=== PATIENT | female | born 1955 | race Caucasian/White ===

== ENCOUNTER 2018-07-07 15:23 | Inpatient (IN) | payer OTHER, BC ==
[~2018-07-07] VITALS: Ht 167.6 cm; Wt 127.3 kg
[2018-07-07] MEDS ORDERED: SODIUM CHLORIDE 0.9% 1000ML 1,000 ML IV STA (15:32)
[2018-07-07] MEDS ORDERED: OPTIRAY 320 IV PRN (15:45)
[2018-07-07 16:38] LABS: ISTAT CREATININE 0.5 mg/dl (0.6-1.3); ISTAT IONIZED CALCIUM 1.12 mmol/l (1.12-1.32)
[2018-07-07] MEDS ORDERED: VALS-10 PO (17:04)
[2018-07-07] MEDS ORDERED: GLIP1TAB85 PO (17:04)
[2018-07-07] MEDS ORDERED: VTMB12 PO (17:04)
[2018-07-07] MEDS ORDERED: OMEG5CAP PO (17:04)
[2018-07-07] MEDS ORDERED: METF-384 PO (17:04)
[2018-07-07] MEDS ORDERED: METO25TA4 PO (17:04)
[2018-07-07] MEDS ORDERED: MAGN250T9 PO (17:04)
[2018-07-07] MEDS ORDERED: ASPI81TA28 PO (17:04)
[2018-07-07] MEDS ORDERED: PRAV20TA PO (17:04)
[2018-07-07] MEDS ORDERED: NF34 TOP (17:04)
[2018-07-07] MEDS ORDERED: VITA1TAB4 PO (17:04)
[2018-07-07] MEDS ORDERED: CHOL20005 PO (17:04)
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
[2018-07-07] MEDS ORDERED: ONDANSETRON INJ 2 MG/ML 2 ML VIAL IV PRN (19:00)
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
[2018-07-07 19:40] VITALS: BP 166/87; PULSE 94; TEMP 36.9; O2SAT 95; Ht 167.6 cm; Wt 127.3 kg
[2018-07-07] MEDS: CLOBETASOL PROPIONATE 0.05% OINT 15 GM TUBE EXT SCH (20:44)
[2018-07-07] MEDS: PRAVASTATIN SOD 20 MG TAB PO SCH (20:46)
[2018-07-07] MEDS: INSULIN ASPART 100 UNITS/ML 3 ML PEN SC SCH (20:48)
[2018-07-07] MEDS ORDERED: IV FLUIDS COMPLETED PRN (21:15)
[2018-07-07] MEDS: HYDROmorphone INJ 0.5 MG/0.5 ML SYR IV PRN (21:19)
[2018-07-07 23:15] VITALS: BP 132/73; PULSE 82; TEMP 37.1; O2SAT 91
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
[2018-07-08] MEDS: HYDROmorphone INJ 0.5 MG/0.5 ML SYR IV PRN ×3 (01:29→17:50)
[2018-07-08 03:09] VITALS: BP 138/77; PULSE 76; TEMP 36.8; O2SAT 91
[2018-07-08 07:37] VITALS: BP 167/83; PULSE 76; TEMP 36.9; O2SAT 94
[2018-07-08 07:53] LABS: HEMATOCRIT 37.6 % (37-47); HEMOGLOBIN 12.6 g/dL (12.0-16.0); MEAN CELL VOLUME 89.1 fL (80-100); MEAN CORPUSCULAR HEMOGLOBIN 29.9 pg (25-34); MEAN CORPUSCULAR HGB CONC 33.5 g/dl (32-36); MEAN PLATELET VOLUME 11.2 fL (7.4-10.4); PLATELET COUNT 205 K/uL (130-400); RED CELL DISTRIBUTION WIDTH CV 13.4 % (11.5-14.5); WHITE BLOOD COUNT 8.67 K/uL (4.8-10.8)
[2018-07-08 08:03] LABS: CALCIUM 8.8 mg/dl (8.5-10.1); CREATININE 0.64 mg/dl (0.60-1.20); POTASSIUM 4.1 mmol/L (3.5-5.1)
[2018-07-08 08:17] LABS: BASO % 0.5 %; BASO ABS # 0.04 K/uL (0-0.2); EOS % 0.2 %; EOS ABS # 0.02 K/uL (0-0.5); IG# 0.03 K/uL (0.00-0.02); LYMPH ABS # 2.08 K/uL (1.2-3.4); MONO % 11.8 %; MONO ABS # 1.02 K/uL (0.11-0.59); NEUT % 63.2 %; NEUT ABS # 5.48 K/uL (1.4-6.5)
[2018-07-08] MEDS: VALSARTAN 80 MG TAB PO SCH (08:19)
[2018-07-08] MEDS: METOPROLOL SUCC 25MG EXT REL TAB PO SCH (08:20)
[2018-07-08] MEDS: HYDROCHLOROTHIAZIDE 25 MG TAB PO SCH (08:20)
[2018-07-08] MEDS: CYANOCOBALAMIN 500 MCG TAB (VIT B-12) PO SCH (08:20)
[2018-07-08] MEDS: CHOLECALCIFEROL 1000 INTER.UNIT TAB PO SCH (08:21)
[2018-07-08] MEDS: CLOBETASOL PROPIONATE 0.05% OINT 15 GM TUBE EXT SCH ×2 (08:21→20:34)
[2018-07-08] MEDS: OMEGA-3 (PURIFIED FISH OIL) 1 GM CAP PO SCH (08:21)
[2018-07-08] MEDS: INSULIN ASPART 100 UNITS/ML 3 ML PEN SC SCH ×4 (08:25→20:35)
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
[2018-07-08] MEDS ORDERED: NON-FORMULARY MEDICATION (Magnesium 250 MG) PO SCH (09:00)
[2018-07-08] MEDS ORDERED: VITAMIN E 400 UNIT PO SCH (09:00)
[2018-07-08 11:27] VITALS: BP 155/78; PULSE 77; TEMP 36.8; O2SAT 93
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
[2018-07-08 15:39] VITALS: BP 125/68; PULSE 80; TEMP 37.1; O2SAT 94
[2018-07-08 19:48] VITALS: BP 153/80; PULSE 70; TEMP 36.8; O2SAT 91
[2018-07-08] MEDS: PRAVASTATIN SOD 20 MG TAB PO SCH (20:35)
[2018-07-08] MEDS: OXYCODONE/ACETAMINOPHEN 5-325 TAB PO PRN (20:37)
[2018-07-08 22:58] VITALS: BP 130/68; PULSE 69; TEMP 36.6; O2SAT 92
[2018-07-09 04:02] VITALS: BP 134/83; PULSE 72; TEMP 36.6; O2SAT 92
[2018-07-09 06:44] VITALS: BP 141/81; PULSE 69; TEMP 37.1; O2SAT 93
[2018-07-09] MEDS: CLOBETASOL PROPIONATE 0.05% OINT 15 GM TUBE EXT SCH ×2 (08:08→21:00)
[2018-07-09] MEDS: OMEGA-3 (PURIFIED FISH OIL) 1 GM CAP PO SCH (08:13)
[2018-07-09] MEDS: VALSARTAN 80 MG TAB PO SCH (08:14)
[2018-07-09] MEDS: METOPROLOL SUCC 25MG EXT REL TAB PO SCH (08:15)
[2018-07-09] MEDS: HYDROCHLOROTHIAZIDE 25 MG TAB PO SCH (08:15)
[2018-07-09] MEDS: CHOLECALCIFEROL 1000 INTER.UNIT TAB PO SCH (08:15)
[2018-07-09] MEDS: CYANOCOBALAMIN 500 MCG TAB (VIT B-12) PO SCH (08:15)
[2018-07-09] MEDS: INSULIN ASPART 100 UNITS/ML 3 ML PEN SC SCH ×4 (08:20→21:14)
[2018-07-09] MEDS ORDERED: ACETAMINOPHEN 500 MG TAB PO PRN (10:00)
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
[2018-07-09 11:49] VITALS: BP 142/76; PULSE 75; TEMP 37; O2SAT 92
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
[2018-07-09 15:34] VITALS: BP 155/76; PULSE 77; TEMP 36.6; O2SAT 92
[2018-07-09 19:31] VITALS: BP 151/75; PULSE 74; TEMP 36.9; O2SAT 92
[2018-07-09] MEDS: OXYCODONE/ACETAMINOPHEN 5-325 TAB PO PRN (21:14)
[2018-07-09] MEDS: PRAVASTATIN SOD 20 MG TAB PO SCH (21:14)
[2018-07-09 23:30] VITALS: BP 123/75; PULSE 67; TEMP 36.9; O2SAT 93
[2018-07-10 04:08] VITALS: BP 138/80; PULSE 68; TEMP 36.9; O2SAT 93
[2018-07-10 05:43] LABS: BASO % 0.5 %; BASO ABS # 0.05 K/uL (0-0.2); EOS % 1.2 %; EOS ABS # 0.13 K/uL (0-0.5); HEMATOCRIT 38.2 % (37-47); HEMOGLOBIN 12.7 g/dL (12.0-16.0); IG# 0.06 K/uL (0.00-0.02); LYMPH % 25.7 %; LYMPH ABS # 2.69 K/uL (1.2-3.4); MEAN CELL VOLUME 89.3 fL (80-100); MEAN CORPUSCULAR HEMOGLOBIN 29.7 pg (25-34); MEAN CORPUSCULAR HGB CONC 33.2 g/dl (32-36); MEAN PLATELET VOLUME 10.6 fL (7.4-10.4); MONO % 8.8 %; MONO ABS # 0.92 K/uL (0.11-0.59); NEUT % 63.2 %; PLATELET COUNT 244 K/uL (130-400); RED CELL DISTRIBUTION WIDTH CV 13.4 % (11.5-14.5); RED CELL DISTRIBUTION WIDTH SD 43.1 fL (36.4-46.3); WHITE BLOOD COUNT 10.45 K/uL (4.8-10.8)
[2018-07-10 06:12] LABS: CALCIUM 9.1 mg/dl (8.5-10.1); CREATININE 0.63 mg/dl (0.60-1.20); POTASSIUM 3.9 mmol/L (3.5-5.1)
[2018-07-10 07:05] VITALS: BP 139/83; PULSE 71; TEMP 36.9; O2SAT 94
[2018-07-10] MEDS: METOPROLOL SUCC 25MG EXT REL TAB PO SCH (08:52)
[2018-07-10] MEDS: CHOLECALCIFEROL 1000 INTER.UNIT TAB PO SCH (08:52)
[2018-07-10] MEDS: VALSARTAN 80 MG TAB PO SCH (08:52)
[2018-07-10] MEDS: OMEGA-3 (PURIFIED FISH OIL) 1 GM CAP PO SCH (08:53)
[2018-07-10] MEDS: CLOBETASOL PROPIONATE 0.05% OINT 15 GM TUBE EXT SCH (08:53)
[2018-07-10] MEDS: HYDROCHLOROTHIAZIDE 25 MG TAB PO SCH (08:53)
[2018-07-10] MEDS: CYANOCOBALAMIN 500 MCG TAB (VIT B-12) PO SCH (08:53)
[2018-07-10] MEDS: INSULIN ASPART 100 UNITS/ML 3 ML PEN SC SCH ×2 (09:03→13:19)
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
[2018-07-10 11:20] VITALS: BP_SYST 167; BP_SYST 168; BP_DIAS 101; BP_DIAS 96; PULSE 64; TEMP 36.8; O2SAT 96
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
[2018-07-10 11:52] VITALS: BP 158/92; PULSE 68; TEMP 36.8; O2SAT 97
[2018-07-10 12:08] VITALS: BP 150/79; PULSE 77; O2SAT 91
== END 2018-07-10 14:14 | disposition home or self-care (01) | DRG 184 ==
LOC: C.EDC 15:27 → C.2T 18:51 → ENRESERV 19:05 → OBSVTOIN 07-09 11:09
PROVIDERS: ADMIT Internal Medicine; ATTEND Internal Medicine
DX: S22.20XA Unspecified fracture of sternum, initial encounter for closed fracture (principal); S12.600A Unspecified displaced fracture of seventh cervical vertebra, initial encounter for closed fracture; S36.892A Contusion of other intra-abdominal organs, initial encounter; Z68.42 Body mass index [BMI] 45.0-49.9, adult; S20.219A Contusion of unspecified front wall of thorax, initial encounter; E66.9 Obesity, unspecified; E11.9 Type 2 diabetes mellitus without complications; K90.0 Celiac disease; K76.0 Fatty (change of) liver, not elsewhere classified; I10 Essential (primary) hypertension; Z87.891 Personal history of nicotine dependence; Z79.84 Long term (current) use of oral hypoglycemic drugs; V49.40XA Driver injured in collision with unspecified motor vehicles in traffic accident, initial encounter; Y92.410 Unspecified street and highway as the place of occurrence of the external cause